=== PATIENT | male | born 1965 ===

== ENCOUNTER 2019-09-30 17:58 | Emergency (ER) | payer OTHER ==
[2019-09-30] MEDS ORDERED: ASPIRIN 325 MG TAB PO ONE (18:15)
[2019-09-30 18:45] LABS: Basophils # (Auto) 0.1 K/mm3 (0.0-0.1); Basophils % (Auto) 0.9 % (0.0-1.8); Eosinophils # (Auto) 0.3 K/mm3 (0.0-0.4); Eosinophils % (Auto) 4.7 % (0.0-4.3); Hematocrit 40.9 % (35.5-45.6); Hemoglobin 13.2 gm/dl (11.8-15.2); Lymphocytes # (Auto) 1.3 K/mm3 (1.2-5.4); Lymphocytes % (Auto) 19.7 % (13.4-35.0); Mean Corpuscular HGB Conc 32 % (32-34); Mean Corpuscular Volume 95 fl (84-94); Monocytes # (Auto) 0.6 K/mm3 (0.0-0.8); Monocytes % (Auto) 8.4 % (0.0-7.3); Platelet Count 191 K/mm3 (140-440); Red Blood Count 4.29 M/mm3 (3.65-5.03); Red Cell Distribution Width 15.3 % (13.2-15.2)
--- NOTE | 2019-09-30 18:48 | Emergency Department Report ---
ED Chest Pain HPI - General Chief Complaint: Chest Pain Stated Complaint: CHEST PAIN PUI?: No Time Seen by Provider: 09/30/19 18:25 Source: family Mode of arrival: Stretcher Limitations: Language Barrier - History of Present Illness Initial Comments: This is a 54-year-old male with history of hypertension, diabetes mellitus who presents with sudden onset of chest pain rating to left arm while seated at rest at home. Squeezing pain rating to the back and left arm. He also had associated shortness of breath. Symptoms subsided with aspirin and nitroglycerin given via EMS. He also has bilateral feet tingling which started in association with the chest pain. No previous history of heart disease. He does not have a regular primary care physician. During the [place] he [place]. He brings medications from [facility] to treat diabetes while residing in [facility]. Patient denies fever, cough. No sick contacts. 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 He lives at home with his son. He denies tobacco abuse. MD Complaint: chest pain -: Sudden, hour(s) (1) Onset: during rest Pain Location: substernal Pain Radiation: LUE, back Severity scale (0 -10): 6 Quality: tightness Consistency: now resolved Improves With: nitroglycerin, other (Aspirin) Worsens With: nothing re: dyspnea Treatments Prior to Arrival: aspirin, nitroglycerin - Related Data Allergies Allergy/AdvReac Type Severity Reaction Status Date / Time No Known Allergies Allergy Unverified 09/30/19 18:10 Heart Score - HEART Score History: Slightly suspicious EKG: Non-specific Age: 45-65 Risk factors: 1-2 risk factors Troponin: < normal limit HEART Score: 3 ED Review of Systems ROS: Stated complaint: CHEST PAIN Other details as noted in HPI Comment: All other systems reviewed and negative Constitutional: denies: fever, malaise Respiratory: shortness of breath. denies: cough Cardiovascular: chest pain ED Past Medical Hx - Past Medical History Previous Medical History?: Yes Hx Hypertension: Yes Hx Diabetes: Yes - Surgical History Past Surgical History?: Yes Additional Surgical History: Back surgery - Family History Family history: no significant - Social History Smoking Status: Never Smoker Substance Use Type: Alcohol ED Physical Exam - General Limitations: Language Barrier General appearance: alert, in no apparent distress - Head Head exam: Present: atraumatic, normocephalic - Eye Eye exam: Present: normal appearance - ENT ENT exam: Present: mucous membranes moist - Neck Neck exam: Present: normal inspection, full ROM - Respiratory Respiratory exam: Present: normal lung sounds bilaterally. Absent: respiratory distress, wheezes, rales, rhonchi - Cardiovascular Cardiovascular Exam: Present: regular rate, normal rhythm, normal heart sounds. Absent: systolic murmur, diastolic murmur, rubs, gallop - GI/Abdominal GI/Abdominal exam: Present: soft, normal bowel sounds. Absent: distended, tenderness, guarding, rebound - Rectal Rectal exam: Present: deferred - Extremities Exam Extremities exam: Present: normal inspection - Neurological Exam Neurological exam: Present: alert, oriented X3 - Expanded Neurological Exam Expanded Patient oriented to: Present: person, place, time Speech: Present: fluid speech Cranial nerves: EOM's Intact: Normal, Gag Reflex: Normal Cerebellar function: Finger to Nose: Normal Upper motor neuron: Emiliano Neglect: Normal Sensory exam: Upper Extremity Light Touch: Normal Motor strength exam: RUE: 5, LUE: 5, RLE: 5, LLE: 5 Best Eye Response (Janessa): (4) open spontaneously Best Motor Response (Janessa): (6) obeys commands Best Verbal Response ([place]): (5) oriented Janessa Total: 15 - Psychiatric Psychiatric exam: Present: normal affect, normal mood - Skin Skin exam: Present: warm, dry, intact, normal color. Absent: rash ED Course Vital Signs 09/30/19 09/30/19 09/30/19 18:11 18:15 18:30 Temperature 98.9 F Pulse Rate 102 H 89 92 H Respiratory 22 22 25 H Rate Blood Pressure 165/73 141/59 151/68 O2 Sat by Pulse 100 100 100 Oximetry 09/30/19 09/30/19 09/30/19 18:45 19:00 19:15 Temperature Pulse Rate 84 78 75 Respiratory 22 19 20 Rate Blood Pressure 131/59 131/60 134/63 O2 Sat by Pulse 100 100 100 Oximetry 09/30/19 09/30/19 09/30/19 19:30 19:45 20:00 Temperature Pulse Rate 71 74 68 Respiratory 19 20 16 Rate Blood Pressure 126/61 135/57 133/64 O2 Sat by Pulse 100 100 99 Oximetry 09/30/19 09/30/19 09/30/19 20:15 20:30 20:45 Temperature Pulse Rate 67 63 71 Respiratory 18 17 15 Rate Blood Pressure 129/63 127/61 134/66 O2 Sat by Pulse 100 99 100 Oximetry 09/30/19 09/30/19 09/30/19 21:00 21:15 21:30 Temperature Pulse Rate 62 72 60 Respiratory 16 21 20 Rate Blood Pressure 134/67 127/59 128/64 O2 Sat by Pulse 99 100 100 Oximetry 09/30/19 21:45 Temperature Pulse Rate 57 L Respiratory 18 Rate Blood Pressure 131/61 O2 Sat by Pulse 100 Oximetry ED Medical Decision Making - Lab Data Result diagrams: 09/30/19 18:24 09/30/19 18:24 - EKG Data -: EKG Interpreted by Fl EKG shows normal: sinus rhythm, axis, intervals, ST-T waves Rate: normal - EKG Data 09/30/19 19:05 EKG obtained 1807 Normal sinus rhythm rate 95 bpm normal axis normal intervals no ST elevation nonischemic T wave pattern QS complexes V1 V2 - Medical Decision Making Mr. Nelson presents with sudden onset of chest pain at rest. Differential malvin gnosis includes ACS, pulmonary embolism, musculoskeletal pain, With work-up in the emergency department: Life-threatening emergent condition such as aortic dissection, pneumothorax, pneumonia, myocardial infarction have been eliminated. I strongly encouraged follow-up with her radio machinist for outpatient cardiac stress testing. Referral form was faxed to [facility] for urgent follow-up Acute myocardial infarction ruled out with troponin x2. Patient and son understand to follow-up with both radio machinist and outpatient medicine physician. Vital Signs - 24 hr 09/30/19 09/30/19 09/30/19 18:11 18:15 18:30 Temperature 98.9 F Pulse Rate 102 H 89 92 H Respiratory 22 22 25 H Rate Blood Pressure 165/73 141/59 151/68 O2 Sat by Pulse 100 100 100 Oximetry 09/30/19 09/30/19 09/30/19 18:45 19:00 19:15 Temperature Pulse Rate 84 78 75 Respiratory 22 19 20 Rate Blood Pressure 131/59 131/60 134/63 O2 Sat by Pulse 100 100 100 Oximetry 09/30/19 09/30/19 09/30/19 19:30 19:45 20:00 Temperature Pulse Rate 71 74 68 Respiratory 19 20 16 Rate Blood Pressure 126/61 135/57 133/64 O2 Sat by Pulse 100 100 99 Oximetry 09/30/19 09/30/19 09/30/19 20:15 20:30 20:45 Temperature Pulse Rate 67 63 71 Respiratory 18 17 15 Rate Blood Pressure 129/63 127/61 134/66 O2 Sat by Pulse 100 99 100 Oximetry 09/30/19 09/30/19 09/30/19 21:00 21:15 21:30 Temperature Pulse Rate 62 72 60 Respiratory 16 21 20 Rate Blood Pressure 134/67 127/59 128/64 O2 Sat by Pulse 99 100 100 Oximetry 09/30/19 21:45 Temperature Pulse Rate 57 L Respiratory 18 Rate Blood Pressure 131/61 O2 Sat by Pulse 100 Oximetry Critical care attestation.: If time is entered above; I have spent that time in minutes in the direct care of this critically ill patient, excluding procedure time. ED Disposition Clinical Impression: Chest pain Disposition: DC-01 TO HOME OR SELFCARE Is pt being admited?: No Does the pt Need Aspirin: No Condition: Stable Instructions: Chest Pain (ED) Referrals: LAURA OMALLEY MD [Staff Physician] - 3-5 Days FRANCK DIAZ MD [Staff Physician] - 3-5 Days
[2019-09-30 19:03] LABS: BUN/Creatinine Ratio 12; Blood Urea Nitrogen 13 mg/dL (9-20); Calcium 8.7 mg/dL (8.4-10.2); Hemolysis Index 31
--- NOTE | 2019-09-30 19:13 | XRay Report ---
CHEST 1 VIEW INDICATION / CLINICAL INFORMATION: Chest Pain. COMPARISON: None available. FINDINGS: SUPPORT DEVICES: None. HEART / MEDIASTINUM: No significant abnormality. LUNGS / PLEURA: No significant pulmonary or pleural abnormality. No pneumothorax. ADDITIONAL FINDINGS: No significant additional findings. IMPRESSION: 1. No acute findings. Signer Name: Kailash Patricio MD Signed: 09/30/2019 7:09 PM Workstation Name: [id number]
[2019-09-30 22:57] VITALS: BP 137/63
== END 2019-09-30 22:57 | disposition home or self-care (01) ==
LOC: ED 17:58
DX: R07.9 Chest pain, unspecified (principal); I10 Essential (primary) hypertension; E11.9 Type 2 diabetes mellitus without complications; Z98.890 Other specified postprocedural states
CPT/HCPCS: 36415; 71045; 80048; 84484; 85025; 93005